=== PATIENT | male | born 1995 | race Caucasian/White ===

== ENCOUNTER 2019-06-04 19:46 | Emergency (ER) | payer OTHER, SELFPAY ==
[2019-06-04 19:49] VITALS: BP 129/85; PULSE 102; RESP 16; TEMP 37.9; O2SAT 99
--- NOTE | 2019-06-04 20:00 | W.ED.GENAD ---
Discharge Plan Disposition Patient Disposition: HOME Condition: Stable Discharge Details Chief Complaint: Orthopedic Clinical Impression: Fracture of distal end of right tibia Primary Care Provider: Jovany Kennedy ED Provider: Jacey Ramos Home Meds and New Rx's Prescriptions: New ibuprofen 800 mg tablet 800 mg PO TID PRN (Reason: pain) Qty: 20 RF: 0 Discharge Instructions Instructions: Ankle Fracture (ED) Additional Instructions: Nonweightbearing as much as possible until follow up with patient registration specialist. Follow-up within 1 to 2 weeks. Take Tylenol or ibuprofen every 4-6 hours as needed for pain and swelling. Keep elevated when laying or sitting down to reduce swelling. Return for any problems with circulation severe uncontrolled pain or any concerns. Stand Alone Forms: Work Release Referrals: Oscar Avila MD [ [facility] STAFF PHYSICIAN] - 1 week (posterior malleolus fracture) Medical Decision Making 23-year-old male presents with right ankle pain after a slip and fall. Patient states that he fell to the ground, had a inversion type injury and heard a snap and is unable to ambulate on his right ankle. On exam he does have right lateral malleolus swelling mild tenderness to palpation. Dorsal pedal pulses intact cap refill less than 3 seconds. TECHNIQUE: Imaging protocol: XR Right ankle. Views: 3 or more views. COMPARISON: No relevant prior studies available. FINDINGS: Bones/joints: There is a fracture of the posterior malleolus on series 3, image 1. Soft tissue swelling is seen adjacent to the lateral malleolus. Occult fracture or ligamentous injury in this location is not excluded. Soft tissues: See above. No unusual soft tissue calcifications. IMPRESSION: 1. There is a fracture of the posterior malleolus on series 3, image 1. 2. Soft tissue swelling is seen adjacent to the lateral malleolus. Occult fracture or ligamentous injury in this location is not excluded. Thank you for allowing us to participate in the care of your patient. Dictated and Authenticated by: Noemy Proctor MD 06/04/2019 8:47 PM Eastern Time ([place] & [place]) 2101: Consulted with Dr. Avila who is on-call for orthopedics and discussed x-ray results. He recommends ruling out proximal fibula fracture due to this type of fracture. If no fibular fracture will place patient in Ortho boot and give crutches. COMPARISON: Ankle radiographs, 06/04/2019. FINDINGS: Bones/joints: A fracture in the posterior distal tibia is again identified. This appears to extend to the articular surface. No additional fractures seen. Soft tissues: No unusual soft tissue calcifications IMPRESSION: A fracture in the posterior distal tibia is again identified, lateral radiograph. This appears to extend to the articular surface. No additional fractures seen. Thank you for allowing us to participate in the care of your patient. Dictated and Authenticated by: Noemy Proctor MD 06/04/2019 9:29 PM Eastern Time ([place] & [place]) There is no proximal fractures noted on x-ray as noted above. Patient placed in Ortho boot and given crutches and 800 mg ibuprofen to take every 4-6 hours as needed. Instructed to follow-up with orthopedic clinic within 1 week. Patient verbalized understanding. HPI General Mode of arrival: ambulatory. Date/Time Provider Initiated Documentation: 06/04/19 19:58. Limitations to Documentation: no limitations. Information obtained by: patient. HPI Narrative: 23-year-old male presents with right ankle pain after a slip and fall. Patient states that he fell to the ground and heard a snap and is unable to ambulate on his right ankle. On exam he does have right lateral malleolus swelling mild tenderness to palpation. Dorsal pedal pulses intact cap refill less than 3 seconds. Related Data Home Medications Medication Instructions Recorded Confirmed ibuprofen 800 mg PO TID PRN #20 tab 06/04/19 Previous Rx's Medication Instructions Recorded ibuprofen 800 mg PO TID PRN #20 tab 06/04/19 Allergies Allergy/AdvReac Type Severity Reaction Status Date / Time No Known Allergies Allergy Unverified 06/04/19 19:56 General Stated Complaint: Orthopedic JUHI: 4 Review of Systems Narrative: Constitutional: Negative for weight loss, alert and oriented, well groomed, normal body habitus, appears comfortable. HEENT: Denies trauma, headaches, blurry vision, nasal discharge, sore throat, trouble swallowing. Chest: Denies chest pain, palpitations, irregular rhythm, hypertension. Respiratory: Denies Shortness of breath, cough, hemoptysis. GI: Denies abdominal pain, nausea, vomiting, diarrhea, constipation. : Denies dysuria, hematuria, flank pain, rectal bleeding. Musculoskeletal: Right ankle pain and swelling. Neuro: Denies dizziness, blurry vision, weakness, syncope, headache or facial numbness. Hematologic: Denies easy bruising, intolerance to heat or cold, hair loss. [facility], LAT[facility] Medical History Pilonidal cyst Social History Smoking/Tobacco Use Status: Never Alcohol Intake: current Alcohol Intake frequency: holidays/special occasions only Drug use: Never Do you feel safe at home: Yes Do you feel safe in your relationship?: Yes Exam Narrative Exam Narrative: Constitutional: Allert and oriented x3. Appears stated age. Normal body habitus. Head: Normocephalic, no trauma. Eyes: Pupils PERRLA, Red reflex noted, EOM's intact. Eyelids symmetrical withour lesions, discharge, or swelling. ENT: Bilateral TM's WNL, External ear normal to inspection, no mastoid TTP, swelling, or erythema, Nasal turbinates WNL, no nasal discharge. Normal dentition, Posterior pharynx WNL, no exudate. Chest: RRR, Normal S1, S2, distal pulses intact. Resp: Lungs clear to auscultation bilaterally, no wheezes, rales, or rhonchi. Musculoskeletal: Normal gait, 5/5 strength to all four extremities. Right lateral malleolus swelling and mild tenderness to palpation to right ankle. Dorsal pedal pulses intact, cap refill less than 3 seconds. Skin: No suspicious rashes or lesions. Capillary refill ?2 sec. Neurologic: Cranial nerves II-XII intact. Alert and oriented x 3. DTR's intact. Hematologic/Lymphatic: No ecchymosis, no lymphadenopathy. Course Vital Signs Vital signs: Vital Signs Temperature 37.9 C H 06/04/19 19:49 Pulse 102 H 06/04/19 19:49 Respiratory Rate 16 06/04/19 19:49 Blood Pressure 129/85 06/04/19 19:49 Pulse Oximetry 99 06/04/19 19:49 Temperature 37.9 C H 06/04/19 19:49 Temperature Source Skin 06/04/19 19:49 Pulse 102 H 06/04/19 19:49 Respiratory Rate 16 06/04/19 19:49 Respiratory Effort 06/04/19 19:56 Blood Pressure 129/85 06/04/19 19:49 Pulse Oximetry 99 06/04/19 19:49 Oxygen Delivery Method Room Air 06/04/19 19:49 Oxygen Flow Rate 0 06/04/19 19:49 Pain Level 6 06/04/19 19:58
--- NOTE | 2019-06-04 20:20 | DI.RAD_ITS ---
EXAM: XR ANKLE RT COMPLETE CLINICAL HISTORY: Fall, lateral swelling. TECHNIQUE: 2D digital imaging was performed. COMPARISON: No exams were available for comparison FINDINGS: BONES: Nondisplaced fracture of the posterior malleolus. No bony destructive lesion is seen. JOINTS: The ankle mortise is normally aligned. SOFT TISSUE: Soft tissue swelling about the ankle, particularly laterally. IMPRESSION: Nondisplaced posterior malleolar fracture. DATA REPOSITORY: RADIATION DOSE DELIVERED:
--- NOTE | 2019-06-04 20:47 | DI.VRAD_ITS ---
PROCEDURE INFORMATION: Exam: XR Right Ankle Exam date and time: 06/04/2019 8:13 PM Age: 23 years old Clinical indication: Injury or trauma; Fall; Initial encounter; Blunt trauma; Injury date: 06/04/19; Injury details: Fell on ice, lateral left ankle pain TECHNIQUE: Imaging protocol: XR Right ankle. Views: 3 or more views. COMPARISON: No relevant prior studies available. FINDINGS: Bones/joints: There is a fracture of the posterior malleolus on series 3, image 1. Soft tissue swelling is seen adjacent to the lateral malleolus. Occult fracture or ligamentous injury in this location is not excluded. Soft tissues: See above. No unusual soft tissue calcifications. IMPRESSION: 1. There is a fracture of the posterior malleolus on series 3, image 1. 2. Soft tissue swelling is seen adjacent to the lateral malleolus. Occult fracture or ligamentous injury in this location is not excluded. Dictated and Authenticated by: Noemy Proctor MD. Ordering:LAWRENCE Mari MD
--- NOTE | 2019-06-04 21:00 | DI.RAD_ITS ---
EXAM: XR TIB/FIB RT CLINICAL HISTORY: Fall. TECHNIQUE: 2D digital imaging was performed. COMPARISON: No exams were available for comparison FINDINGS: BONES: Nondisplaced fracture of the posterior malleolus. No bony destructive lesion is seen. Visuali zed portion of knee is unremarkable. The distal tibia and fibula are included on the x-ray of the an kle. SOFT TISSUE: Normal. IMPRESSION: Nondisplaced posterior malleolar fracture. DATA REPOSITORY: RADIATION DOSE DELIVERED:
--- NOTE | 2019-06-04 21:29 | DI.VRAD_ITS ---
PROCEDURE INFORMATION: Exam: XR Right Tibia and Fibula Exam date and time: 06/04/2019 9:12 PM Age: 23 years old Clinical indication: Injury or trauma; Initial encounter; Blunt trauma; Lower leg; Right; Injury date: 06/04/19; Injury details: Fall with lateral ankle pain. Ap ankle seen completely on separate ankle images TECHNIQUE: Imaging protocol: XR Right tibia and fibula. Views: 2 views. COMPARISON: Ankle radiographs, 06/04/2019. FINDINGS: Bones/joints: A fracture in the posterior distal tibia is again identified. This appears to extend to the articular surface. No additional fractures seen. Soft tissues: No unusual soft tissue calcifications IMPRESSION: A fracture in the posterior distal tibia is again identified, lateral radiograph. This appears to extend to the articular surface. No additional fractures seen. Dictated and Authenticated by: Noemy Proctor MD. Ordering:LAWRENCE Mari MD
[2019-06-04 21:47] VITALS: BP 129/85; PULSE 98; RESP 16; TEMP 36.8; O2SAT 99
== END 2019-06-04 21:47 | disposition home or self-care (01) ==
PROVIDERS: Emergency Provider Registered Nurse Emergency; PCP General Practice
DX: S82.391A Other fracture of lower end of right tibia, initial encounter for closed fracture (principal); W00.0XXA Fall on same level due to ice and snow, initial encounter; X50.9XXA Other and unspecified overexertion or strenuous movements or postures, initial encounter
CPT/HCPCS: 27767; 99283; 73590; 73610; 99282; E0114; L4361

== ENCOUNTER 2019-07-11 01:09 | Outpatient (CLI) | payer SELFPAY ==
--- NOTE | 2019-07-11 08:33 | DI.RAD_ITS ---
EXAM: XR ANKLE RT COMPLETE CLINICAL HISTORY: F/U FX, [id number]. TECHNIQUE: 2D digital imaging was performed. COMPARISON: XR ANKLE RT COMPLETE from 06/04/2019 FINDINGS: BONES: There is now periosteal reaction seen at the lateral aspect of the distal tibial metaphysis on the frontal and oblique views suggesting callus formation and healing. The fracture line is not as well visualized on the lateral view on the current examination compared to the prior examination. No new fracture or dislocation is identified. JOINTS: The ankle mortise is normally aligned. SOFT TISSUE: Normal. IMPRESSION: Findings suggestive of a healing distal right tibial fracture. DATA REPOSITORY: RADIATION DOSE DELIVERED:
== END 2019-07-11 01:29 ==
PROVIDERS: PCP General Practice; Visit Provider Orthopaedic Surgery
DX: S82.391D Other fracture of lower end of right tibia, subsequent encounter for closed fracture with routine healing (principal)
CPT/HCPCS: 73610